=== PATIENT | female | born 1960 | race Caucasian/White ===

== ENCOUNTER 2017-04-25 08:35 | Emergency (ER) | payer BC ==
[~2017-04-25] VITALS: Ht 167.6 cm; Wt 76.0 kg
[~2017-04-25 08:35] MED LIST: ELAVIL10 MG PO; NOHOMEMEDS
[2017-04-25] MEDS ORDERED: PREDNISONE10 MG PO (09:25)
[2017-04-25] MEDS ORDERED: VALTREX1000 MG PO (09:25)
[2017-04-25 09:56] VITALS: BP 141/8
== END 2017-04-25 09:58 | disposition home or self-care (01) ==
LOC: EME 08:35
DX: G51.0 Bell's palsy (principal)
CPT/HCPCS: 99281; 99283